=== PATIENT | female | born 1975 | race Two or more races ===

== ENCOUNTER 2024-02-22 09:10 | Day surgery (SDC) | payer OTHER ==
[2024-02-16 12:34] VITALS: BP 111/71
[~2024-02-22] VITALS: Ht 157.5 cm; Wt 60.8 kg
[~2024-02-22 09:10] MED LIST: LIPITOR20 MG PO; SYNTHROID125 MCG PO
[2024-02-22] MEDS ORDERED: CEFTRIAXONE SODIUM 2,000 MG VIAL ONE (13:53)
[2024-02-22] MEDS ORDERED: METRONIDAZOLE/SODIUM CHLORIDE 500 MG/100 ML PIGGYBACK IV ONE (13:53)
[2024-02-22] MEDS ORDERED: POVIDONE-IODINE 118 ML BOTT TOP ONE (13:55)
[2024-02-22] MEDS ORDERED: LIDOCAINE HCL 1%/EPINEPHRINE 20ML VIAL IJ ONE (13:55)
[2024-02-22] MEDS ORDERED: HEMOSTATIC MATRIX 1 KIT KIT TOP ONE (13:55)
[2024-02-22] MEDS ORDERED: BUPIVACAINE HCL/MPF 0.5% 30ML VIAL ONE (13:55)
[2024-02-22] MEDS ORDERED: DIBUCAINE 30 GM TUBE ONE (13:55)
[2024-02-22] MEDS ORDERED: BUPIVACAINE LIPOSOME/PF 266 MG/20 ML VIAL IJ ONE (14:11)
[2024-02-22] MEDS ORDERED: PERCOCET 5-3251 EACH PO (15:09)
[2024-02-22] MEDS ORDERED: CELECOXIB200 MG PO (15:09)
[2024-02-22] MEDS ORDERED: NEURONTIN300 MG PO (15:09)
[2024-02-22] MEDS ORDERED: INTESTINEX680 M1 PO (15:15)
[2024-02-22] MEDS ORDERED: MORPHINE SULFATE 4 MG/ML VIAL IV ONE (21:30)
== END 2024-02-22 22:10 | disposition home or self-care (01) ==
LOC: CIR.AMB 09:10
PROVIDERS: ATTEND Surgery
DX: K60.1 Chronic anal fissure (principal); K62.5 Hemorrhage of anus and rectum; K58.1 Irritable bowel syndrome with constipation; Z88.2 Allergy status to sulfonamides